=== PATIENT | female | born 1985 | race African-American/Black ===

== ENCOUNTER 2019-10-23 12:35 | Emergency (ER) | payer OTHER ==
[~2019-10-23] VITALS: Ht 144.8 cm; Wt 86.2 kg
[~2019-10-23 12:35] MED LIST: BACTRIM DS TAB1 EACH PO; DARVOCET-N 1001 EACH PO; DOXYCYCLINE 10100 MG PO; IBUPROFEN 400400 M1 PO; PHENERGAN 25 MG25 M1 PO
[2019-10-23] MEDS ORDERED: ACETAMINOPHEN500 M1 PO (13:29)
[2019-10-23 17:11] LABS: ABSOLUTE NEUTROPHILS 4.6 thou/uL (1.4-8.2); BASOPHILS 0.6 % (0.0-2.0); EOSINOPHILS 0.9 % (0.0-3.0); HEMATOCRIT 33.2 % (37.0-47.0); HEMOGLOBIN 11.1 gm/dL (12.0-15.0); MCH 28.1 pg (26.0-34.0); MCHC 33.6 g/dL (28.0-37.0); MCV 83.8 fL (80.0-100.0); PLATELET COUNT 416 thou/uL (150-400); POLYS 57.5 % (36.0-66.0); RBC 3.96 mil/uL (4.20-5.00); RDW 14.1 % (10.5-14.5); WBC 7.9 thou/uL (4.0-11.0)
[2019-10-23 17:47] LABS: CALCIUM 8.1 mg/dL (8.5-10.1); CREATININE 0.7 mg/dL (0.6-1.0)
[2019-10-23 17:52] LABS: ALBUMIN 2.9 g/dL (3.4-5.0); TOTAL BILIRUBIN 0.4 mg/dL (0.2-1.0); TOTAL PROTEIN 6.9 g/dL (6.4-8.2)
[2019-10-23 20:30] VITALS: BP 128/78
== END 2019-10-23 19:46 | disposition left against medical advice (07) ==
LOC: ER 12:35
PROVIDERS: Physician Assistant
DX: R51 Headache (principal); R93.0 Abnormal findings on diagnostic imaging of skull and head, not elsewhere classified